=== PATIENT | female | born 1985 | race Caucasian/White ===

== ENCOUNTER 2017-10-18 13:40 | Emergency (ER) | payer BC ==
[~2017-10-18] VITALS: Ht 162.6 cm; Wt 54.4 kg
--- OUTSIDE RECORDS SUMMARY | 2017-10-18 13:42 | XMS REPORT | Summary of Care ---
Author Author Gisella Gomez LVN Organization Unknown Address Unknown Phone Unavailable Care Team Providers Care Boat Finisher Name Role Phone Gomez Gisella BA Unavailable Unavailable YBARRA N.P., SHANTE Unavailable Unavailable KATE LESTER, ANTHONY QUEZADA Unavailable Unavailable KATE Bledsoe, ANTHONY Heath Unavailable Unavailable Unavailable Functional Status Name Dates Details Functional status health issues are not documented Status: Name Dates Details Cognitive status health issues are not documented Status: Problems Name Dates Details Encounter for cervical Pap smear with pelvic exam (V76.2, Z01.419) Status: Active Myalgia and myositis (729.1) Status: Active Fatigue (780.79, R53.83) Status: Active 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, 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 Allergic rhinitis, seasonal (477.9, J30.2) Status: Active Menorrhagia (626.2, N92.0) Status: Active Anemia (285.9, D64.9) Status: Active Asthma (493.90, J45.909) Status: Active Viral upper respiratory tract infection with cough (465.9, J06.9) Status: Active Sore throat (462, J02.9) Status: Active Cough (786.2, R05) Status: Active Acute urinary tract infection (599.0, N39.0) Status: Active Medications Name Dates Details FLUoxetine HCl - 20 MG Oral Capsule take one tablet tid Active Geodon 20 MG Oral Capsule TAKE ONCE DAILY * Refills: 0 Active KlonoPIN 1 MG Oral Tablet TAKE 1 TABLET DAILY NEEDED. * Refills: 0 Active ProAir HFA 108 (90 Base) MCG/ACT Inhalation Aerosol Solution INHALE 1 TO 2 PUFFS EVERY 4 TO 6 HOURS NEEDED. * Quantity: 1 Refills: 1 YBARRA N.P., SHANTE * Start : 09-Aug-2017 Active 8.5 GM Inhaler Albuterol Sulfate (2.5 MG/3ML) 0.083% Inhalation Nebulization Solution USE 1 UNIT DOSE EVERY 4-6 HOURS NEEDED FOR WHEEZING . * Quantity: 1 Refills: 0 YBARRA N.P., SHANTE * Start : 09-Aug-2017 Active 25 x 3 ML Plas Cont Nitrofurantoin Monohyd Macro 100 MG Oral Capsule TAKE 1 CAPSULE EVERY 12 HOURS DAILY. * Quantity: 14 Refills: 0 YBARRA N.P., SHANTE * Start : 12-Sep-2017 Active Allergies and Adverse Reactions Name Dates Details Sulfa Drugs (Allergy) Status: Active Past Medical History Name Dates Details History of Anxiety (300.00, F41.9) Status: Resolved History of anxiety disorder (V11.8, Z86.59) Status: Resolved History of bipolar disorder (V11.1, Z86.59) Status: Resolved History of Childhood asthma (493.00, J45.909) Status: Resolved History of Interstitial cystitis (595.1, N30.10) Status: Resolved History of Palpitations (785.1, R00.2) Status: Resolved History of Seizure (780.39, R56.9) Status: Resolved Procedures Procedure Dates Details History of Tonsillectomy Completed History of Complete Colonoscopy Completed Immunization Name Dates Details Immunizations not documented Family History Name Dates Details Family history of Diabetes Mellitus (V18.0) Status: Active Name Dates Details Family history of Cancer Status: Active Name Dates Details Family history of Hypertension (V17.49) Status: Active Name Dates Details Family history of Coronary Artery Disease (V17.49) Status: Active Social History Name Dates Details - Status: Name Dates Details Never smoker Vital Signs Date Test Result Details :30 BP Systolic 105 mm[Hg] Status: Comments: Location: RLE; Position: Standing BP Diastolic 71 mm[Hg] Status: Comments: Location: RLE; Position: Standing Height 64 in Status: Weight 121.6 lb Status: Body Mass Index Calculated 20.87 kg/m2 Status: Body Surface Area Calculated 1.58 m2 Status: Temperature 96.9 f Status: Comments: Method: Temporal Heart Rate 96 /min Status: Comments: Location: L Radial; Respiration Rate 16 /min Status: Comments: Quality: Normal Results Date Description Value Details :31 [O] Urine Dipstick (In Office) LEUKOCYTES ++ NITRITE neg (Normal) UROBILINOGEN neg (Normal) PROTEIN neg (Normal) pH 6 (Normal) URINE BLOOD neg (Normal) SPECIFIC GRAVITY 1.010 (Normal) KETONES neg (Normal) BILIRUBIN neg (Normal) GLUCOSE neg (Normal) COLOR URINE light yellow (Normal) [id number] [[facility]] CULTURE, URINE, ROUTINE CULTURE Comments: CULTURE, URINE, ROUTINE MICRO NUMBER: [id number] TEST STATUS: FINAL SPECIMEN SOURCE: URINE SPECIMEN QUALITY: ADEQUATE RESULT: Multiple organisms present, each less than 10, 000 CFU/mL. These organisms, commonly found on external and internal genitalia, are considered to be colonizers. No further testing performed. Plan of Care Name Dates Details Planned Observations Planned Goals not documented Planned Encounters Appointment; TAHMINA JOINER On: 01-Oct-2017 9:45 Instructions Name Dates Details Instructions not documented Encounters Appointment; KAY TRINIDAD D.O. Encounter Diagnosis: Problem not documented On: 03-Oct-2015 13:30 Appointment; ARIAS GARCIA P.A. Encounter Diagnosis: Problem not documented On: 07-Jun-2016 10:30 Appointment; ARIAS GARCIA P.A. Encounter Diagnosis: Problem not documented On: 28-Jun-2016 14:30 Appointment; ARIAS GARCIA P.A. Encounter Diagnosis: Problem not documented On: 04-Jul-2016 15:00 Appointment; LIZA WILLIAM M.D. Encounter Diagnosis: Problem not documented On: 16-Jul-2016 14:30 Appointment; ARIAS GARCIA P.A. Encounter Diagnosis: Problem not documented On: 02-Oct-2016 15:00 Appointment; SHANTE YBARRA NP Encounter Diagnosis: Problem not documented On: 09-Aug-2017 15:00 Appointment; TAHMINA JOINER Encounter Diagnosis: Problem not documented On: 13-Aug-2017 15:30 Appointment; TAHMINA JOINER Encounter Diagnosis: Problem not documented On: 22-Aug-2017 14:30 Appointment; SHANTE YBARRA NP Encounter Diagnosis: Problem not documented On: 12-Sep-2017 9:30
[2017-10-18] MEDS ORDERED: SODIUM CHLORIDE 0.9% 1000ML 1,000 ML IV STA (14:47)
[2017-10-18 17:17] VITALS: BP 116/67
== END 2017-10-18 16:15 | disposition home or self-care (01) ==
LOC: FSED 13:40
DX: R10.2 Pelvic and perineal pain (principal); R30.0 Dysuria; D50.9 Iron deficiency anemia, unspecified
CPT/HCPCS: 74177; 80053; 81025; 85025; 99283; J7030

== ENCOUNTER → 2020-11-03 | Outpatient (CLI) | payer BC | LOC: RAD 11:39 | PROVIDERS: ATTEND Internal Medicine | DX: M25.521 Pain in right elbow (principal) ==